=== PATIENT | male | born 1980 | race Two or more races ===

== ENCOUNTER 2016-05-17 06:10 | Emergency (ER) | payer SELFPAY ==
[2016-05-17 07:00] VITALS: BP 135/92
== END 2016-05-17 07:00 | disposition left against medical advice (07) ==
LOC: ED 06:10
DX: R51 Headache (principal); M54.2 Cervicalgia; V89.2XXA Person injured in unspecified motor-vehicle accident, traffic, initial encounter; Y93.89 Activity, other specified; Y99.8 Other external cause status; Y92.89 Other specified places as the place of occurrence of the external cause